=== PATIENT | male | born 1965 | race Caucasian/White ===

== ENCOUNTER 2017-02-27 09:51 | Observation (INO) ==
--- NOTE | 2017-02-27 09:59 | Emergency Department Note ---
Disposition Clinical Impression: D-dimer, elevated, CAP (community acquired pneumonia), Chest pain, Septic shock Disposition: Admitted As Inpatient Condition: Serious Chest Pain HPI - General Chief Complaint: ED Chest Pain Stated Complaint: chest pain, NAVI Time Seen by Provider: 02/27/17 09:55 Vital Signs Reviewed: Yes Nursing Notes Reviewed: Yes - Related Data Home Medications Medication Instructions Recorded Confirmed Atorvastatin Calcium [Lipitor] 80 mg PO DAILY 03/29/16 02/27/17 FLUoxetine HCl [Prozac] 40 mg PO DAILY 03/29/16 02/27/17 Omeprazole Magnesium [Prilosec Otc] 20 mg PO DAILY 03/29/16 02/27/17 diazePAM [Valium] 10 mg PO TID 03/29/16 02/27/17 Gemfibrozil [Lopid] 1 tab PO BID 02/27/17 02/27/17 Losartan Potassium [Cozaar] 100 mg PO DAILY 02/27/17 02/27/17 Previous Rx's Medication Instructions Recorded Fluticasone Propionate Nasal 1 spray NS DAILY #1 bottle 03/29/16 [Flonase] Allergies Allergy/AdvReac Type Severity Reaction Status Date / Time ciprofloxacin Allergy See Verified 02/27/17 10:34 Comments ketorolac [From Toradol] Allergy Rash Verified 02/27/17 10:34 tramadol Allergy Rash Verified 02/27/17 10:34 Chest Pain PMH - Past Medical History Medical history: Reports: asthma, GERD, hyperlipidemia, hypertension Psychiatric history: Reports: anxiety, depression - Social History Smoking Status: Current every day smoker Alcohol use: Reports: occasionally Drug use: Reports: none Course Vital Signs Temperature 98.1 F 02/27/17 09:53 Pulse Rate 108 02/27/17 09:53 Respiratory Rate 18 02/27/17 09:53 Blood Pressure 95/57 02/27/17 09:53 O2 Sat by Pulse Oximetry 94 02/27/17 09:53 Temperature 98.1 F 02/27/17 09:53 Pulse Rate 92 02/27/17 13:00 Respiratory Rate 18 02/27/17 13:00 Blood Pressure 111/63 02/27/17 13:00 O2 Sat by Pulse Oximetry 98 02/27/17 13:00 Oxygen Delivery Oxygen Delivery Room Air Chest Pain - MDM Narrative Medical decision making narrative: This documentation is done with the assistance of Dragon dictation. There may be inaccuracies in cupola tapper helper or spelling and typographical errors. I examined this patient and my medical decision-making was reviewed with the Resident Physician. I agree with the documented findings, disposition and treatment plan as described except to the extent set forth below. Patient seen on arrival with EMS and Dr. Guadalupe, I agree with his evaluation and management plan, supervise care the patient's stay. Patient's been having intermittent chest pain going on for more than a week. He has had a family history of heart disease a young age. Mom thinks he had atrial fibrillation in the past. Is also a history of cirrhosis. Patient denies any nausea or back pain at this time no fevers or chills. He appears nontoxic. We will check a troponin EKG chest x-ray and lab work. We will discuss aspirin and nitroglycerin then reassess. He may need admission. 1200 hrs.: Patient has a left-sided pneumonia on chest x-ray. Radiology is having issues with radiologist reading films due to a computer problem. But this is on my read. We will order antibiotics. Admit him to the hospital. He and family in agreement with plan. 1242 hrs.: His d-dimer is elevated which could be from his pneumonia. We like to order CT of his chest however he does have renal insufficiency so we cannot do that. VQ scan may not be the best order either because of the abnormal chest x-ray. We will speak with the hospitalist about heparinizing him and then admit him. Patient's critical care time exclusive a several billable procedures is 45 minutes. Chest X-Ray 02/27/17 09:55 IMPRESSION: 1. Dense opacity in the left mid and lower lung zone, most compatible with pneumonia in the appropriate clinical setting. Recommend treating the patient and following to resolution. D/ / Janice Molina MD / Janice Molina MD Interpreting Provider: Janice Molina MD - Lab Data Result diagrams: 02/27/17 10:24 02/27/17 10:24 Lab Results 02/27/17 02/27/17 02/27/17 Range/Units 10:24 10:24 10:24 WBC 5.2 (4.3-11.1) K/mcL RBC 3.32 L (4.19-5.50) M/mcL Hgb 12.2 L (12.9-16.9) g/dL Hct 34.0 L (37.5-50.1) % MCV 102.4 H (83.0-100.0) fL MCH 36.7 H (28.0-33.3) pg MCHC 35.9 H (31.6-35.5) g/dL RDW 12.7 (11.5-14.5) % Plt Count 167 (140-400) K/mcL MPV 10.9 (9.4-12.4) fL Seg Neutrophils % 55.0 % Band Neutrophils % 17.0 H (0-4) % Lymphocytes % 17.0 % Monocytes % 6.0 % Metamyelocytes % 5.0 H (0) % Neutrophils # 3.7 (1.6-8.9) K/mcL Lymphocytes # 0.9 (0.6-4.6) K/mcL Monocytes # 0.3 (0.0-1.3) K/mcL Reactive Lymphocytes Present A (Not Present) Dohle Bodies Present A (Not Present) Platelet Estimate Normal (Normal) Polychromasia 1+ A (Not Present) PT (9.4-12.1) Seconds INR APTT (26.0-36.0) Seconds D-Dimer (0-500) ng/mLFEU Sodium 128 L (136-145) mEq/L Potassium 4.0 (3.5-5.1) mEq/L Chloride 94 L (98-107) mEq/L Carbon Dioxide 27 (23-29) mEq/L BUN 30 H (6-20) mg/dL Creatinine 2.57 H (0.70-1.30) mg/dL Est GFR ( Amer) 32 L (> 60) Est GFR (Non-Af Amer) 27 L (> 60) BUN/Creatinine Ratio 12 (6-26) Glucose 114 H (70-105) mg/dL Calculated Osmolality 273 L (280-300) Lactic Acid (0.5-2.2) mmol/L Calcium 7.8 L (8.6-10.3) mg/dL Phosphorus 3.2 (2.7-4.5) mg/dL Magnesium 1.0 L (1.6-2.6) mg/dL Total Bilirubin 0.8 (0.3-1.0) mg/dL AST 12 L (13-39) Units/L ALT 26 (7-52) Units/L Alkaline Phosphatase 76 (34-104) Units/L Troponin I < 0.03 (< 0.04) ng/mL Serum Total Protein 7.8 (6.4-8.9) g/dL Albumin 3.2 L (3.5-5.7) g/dL Globulin 4.6 H (2.4-3.5) g/dL Albumin/Globulin Ratio 0.7 L (1.1-2.2) 02/27/17 02/27/17 Range/Units 10:24 10:24 WBC (4.3-11.1) K/mcL RBC (4.19-5.50) M/mcL Hgb (12.9-16.9) g/dL Hct (37.5-50.1) % MCV (83.0-100.0) fL MCH (28.0-33.3) pg MCHC (31.6-35.5) g/dL RDW (11.5-14.5) % Plt Count (140-400) K/mcL MPV (9.4-12.4) fL Seg Neutrophils % % Band Neutrophils % (0-4) % Lymphocytes % % Monocytes % % Metamyelocytes % (0) % Neutrophils # (1.6-8.9) K/mcL Lymphocytes # (0.6-4.6) K/mcL Monocytes # (0.0-1.3) K/mcL Reactive Lymphocytes (Not Present) Dohle Bodies (Not Present) Platelet Estimate (Normal) Polychromasia (Not Present) PT 12.9 H (9.4-12.1) Seconds INR 1.2 APTT 28.3 (26.0-36.0) Seconds D-Dimer 1303 H (0-500) ng/mLFEU Sodium (136-145) mEq/L Potassium (3.5-5.1) mEq/L Chloride (98-107) mEq/L Carbon Dioxide (23-29) mEq/L BUN (6-20) mg/dL Creatinine (0.70-1.30) mg/dL Est GFR ( Amer) (> 60) Est GFR (Non-Af Amer) (> 60) BUN/Creatinine Ratio (6-26) Glucose (70-105) mg/dL Calculated Osmolality (280-300) Lactic Acid 1.9 (0.5-2.2) mmol/L Calcium (8.6-10.3) mg/dL Phosphorus (2.7-4.5) mg/dL Magnesium (1.6-2.6) mg/dL Total Bilirubin (0.3-1.0) mg/dL AST (13-39) Units/L ALT (7-52) Units/L Alkaline Phosphatase (34-104) Units/L Troponin I (< 0.04) ng/mL Serum Total Protein (6.4-8.9) g/dL Albumin (3.5-5.7) g/dL Globulin (2.4-3.5) g/dL Albumin/Globulin Ratio (1.1-2.2)
[2017-02-27] MEDS ORDERED: 0.9 % Sodium Chloride 1,000 ML IVC ONE ×2 (10:04→12:48)
[2017-02-27] MEDS ORDERED: Azithromycin 500 MG in D5% in Water 250 ML IVPB ONE (10:17)
--- NOTE | 2017-02-27 10:21 | Emergency Department Note ---
Disposition Clinical Impression: D-dimer, elevated, Septic shock CAP (community acquired pneumonia) Qualifiers: Laterality: left Lung location: lower lobe of lung Qualified Code(s): J18.1 - Lobar pneumonia, unspecified organism Chest pain Qualifiers: Chest pain type: unspecified Qualified Code(s): R07.9 - Chest pain, unspecified Disposition: Admitted As Inpatient Condition: Serious Time of Disposition: 13:07 Chest Pain HPI - General Chief Complaint: ED Chest Pain Stated Complaint: chest pain, NAVI Time Seen by Provider: 02/27/17 09:55 Source: patient, EMS Limitations: no limitations Vital Signs Reviewed: Yes Nursing Notes Reviewed: Yes - History of Present Illness Pt complaint: chest pain Severity scale (1-10): 8 - Related Data Home Medications Medication Instructions Recorded Confirmed Atorvastatin Calcium [Lipitor] 80 mg PO DAILY 03/29/16 02/27/17 FLUoxetine HCl [Prozac] 40 mg PO DAILY 03/29/16 02/27/17 Omeprazole Magnesium [Prilosec Otc] 20 mg PO DAILY 03/29/16 02/27/17 diazePAM [Valium] 10 mg PO TID 03/29/16 02/27/17 Gemfibrozil [Lopid] 1 tab PO BID 02/27/17 02/27/17 Losartan Potassium [Cozaar] 100 mg PO DAILY 02/27/17 02/27/17 Previous Rx's Medication Instructions Recorded Fluticasone Propionate Nasal 1 spray NS DAILY #1 bottle 03/29/16 [Flonase] Allergies Allergy/AdvReac Type Severity Reaction Status Date / Time ciprofloxacin Allergy See Verified 02/27/17 10:34 Comments ketorolac [From Toradol] Allergy Rash Verified 02/27/17 10:34 tramadol Allergy Rash Verified 02/27/17 10:34 All systems ED: reviewed and negative except as stated. Review of Systems: As Per HPI Constitutional: Reports: fever, chills Eyes: Denies: eye pain, eye discharge ENT ED: Denies: ear pain Cardiovascular: Reports: chest pain. Denies: palpitations Respiratory: Reports: as per HPI, cough, dyspnea, hemoptysis Gastrointestinal: Denies: abdominal pain, nausea Genitourinary: Denies: urgency, dysuria Musculoskeletal: Denies: back pain Integumentary: Denies: rash, abrasion Neurological: Denies: headache Psychiatric: Denies: anxiety, depression Endocrine: Reports: as per HPI, fatigue Chest Pain PMH - Past Medical History Medical history: Reports: asthma, GERD, hyperlipidemia, hypertension Psychiatric history: Reports: anxiety, depression - Social History Smoking Status: Current every day smoker Alcohol use: Reports: occasionally Drug use: Reports: none Physical Exam Constitutional: Mild to moderate respiratory distress, patient appears to be uncomfortable low bp, 94/60 systolic, placed on oxygen, tachycardic. Eyes: PERRLA, sclera anicteric ENT & Mouth: MM dry Neck: normal inspection, neck is supple Resp: tachypeneic rales on the left lung base, diminished lung sounds on the left. CV: tachycardia no m/g/r GI: normal inspection, soft, no guarding or rigidity Neuro: A&O3, CNII-XII grossly intact, PROCTOR Skin: on limited exam, skin intact with no rashes or lesions - General Limitations: no limitations General appearance: alert, in no apparent distress Course Course Narrative: PERC Tachycardic will get Dimer, labs septic workup concern for URI pneumonia, hypoxia,blood pressure low will give 30cc/kg bolus lactate bcx x and reassess. - Reevaluation(s) Reevaluation #1: I spoke with the hospitalist, Dr. Xiao he came in to evaluate the patient, return the patient for pneumonia given her tachycardia, bandemia, he meets criteria for sepsis, started empirically on broad-spectrum ceftriaxone and azithromycin for acute heart pneumonia patient also has evidence of acute on chronic renal failure, the patient was given heparinization for possibility of PE he had a d-dimer of 1200, no history of PE however given hemoptysis, tachycardia and syncopal episodes plan is for heparinization, deferring VQ versus CTAP for hospitalist given that he currently does not have good renal function and there are infiltrative findings versus consolidation on his chest x -ray and VQ scan suboptimal Reevaluation #2: Dr. Xiao came to the bedside to evaluate the patient, he recommended a bedside echocardiogram, given that the patient was hypotensive and is given 30 mL per came bolus, the patient technically meets criteria for septic shock and has improved his blood pressure, there is still concern for pneumonia given bandemia tachycardia and left lobe consolidation however also on the differential is pulmonary embolus therefore will get heparinization, admission to [facility] Time: 13:12 Vital Signs Temperature 98.1 F 02/27/17 09:53 Pulse Rate 108 02/27/17 09:53 Respiratory Rate 18 02/27/17 09:53 Blood Pressure 95/57 02/27/17 09:53 O2 Sat by Pulse Oximetry 94 02/27/17 09:53 Temperature 98.1 F 02/27/17 09:53 Pulse Rate 92 02/27/17 13:00 Respiratory Rate 18 02/27/17 13:00 Blood Pressure 111/63 02/27/17 13:00 O2 Sat by Pulse Oximetry 98 02/27/17 13:00 Oxygen Delivery Oxygen Delivery Room Air Chest Pain - Lab Data Result diagrams: 02/27/17 10:24 02/27/17 10:24 Lab Results 02/27/17 02/27/17 02/27/17 Range/Units 10:24 10:24 10:24 WBC 5.2 (4.3-11.1) K/mcL RBC 3.32 L (4.19-5.50) M/mcL Hgb 12.2 L (12.9-16.9) g/dL Hct 34.0 L (37.5-50.1) % MCV 102.4 H (83.0-100.0) fL MCH 36.7 H (28.0-33.3) pg MCHC 35.9 H (31.6-35.5) g/dL RDW 12.7 (11.5-14.5) % Plt Count 167 (140-400) K/mcL MPV 10.9 (9.4-12.4) fL Seg Neutrophils % 55.0 % Band Neutrophils % 17.0 H (0-4) % Lymphocytes % 17.0 % Monocytes % 6.0 % Metamyelocytes % 5.0 H (0) % Neutrophils # 3.7 (1.6-8.9) K/mcL Lymphocytes # 0.9 (0.6-4.6) K/mcL Monocytes # 0.3 (0.0-1.3) K/mcL Reactive Lymphocytes Present A (Not Present) Dohle Bodies Present A (Not Present) Platelet Estimate Normal (Normal) Polychromasia 1+ A (Not Present) PT (9.4-12.1) Seconds INR APTT (26.0-36.0) Seconds D-Dimer (0-500) ng/mLFEU Sodium 128 L (136-145) mEq/L Potassium 4.0 (3.5-5.1) mEq/L Chloride 94 L (98-107) mEq/L Carbon Dioxide 27 (23-29) mEq/L BUN 30 H (6-20) mg/dL Creatinine 2.57 H (0.70-1.30) mg/dL Est GFR ( Amer) 32 L (> 60) Est GFR (Non-Af Amer) 27 L (> 60) BUN/Creatinine Ratio 12 (6-26) Glucose 114 H (70-105) mg/dL Calculated Osmolality 273 L (280-300) Lactic Acid (0.5-2.2) mmol/L Calcium 7.8 L (8.6-10.3) mg/dL Phosphorus 3.2 (2.7-4.5) mg/dL Magnesium 1.0 L (1.6-2.6) mg/dL Total Bilirubin 0.8 (0.3-1.0) mg/dL AST 12 L (13-39) Units/L ALT 26 (7-52) Units/L Alkaline Phosphatase 76 (34-104) Units/L Troponin I < 0.03 (< 0.04) ng/mL Serum Total Protein 7.8 (6.4-8.9) g/dL Albumin 3.2 L (3.5-5.7) g/dL Globulin 4.6 H (2.4-3.5) g/dL Albumin/Globulin Ratio 0.7 L (1.1-2.2) 02/27/17 02/27/17 Range/Units 10:24 10:24 WBC (4.3-11.1) K/mcL RBC (4.19-5.50) M/mcL Hgb (12.9-16.9) g/dL Hct (37.5-50.1) % MCV (83.0-100.0) fL MCH (28.0-33.3) pg MCHC (31.6-35.5) g/dL RDW (11.5-14.5) % Plt Count (140-400) K/mcL MPV (9.4-12.4) fL Seg Neutrophils % % Band Neutrophils % (0-4) % Lymphocytes % % Monocytes % % Metamyelocytes % (0) % Neutrophils # (1.6-8.9) K/mcL Lymphocytes # (0.6-4.6) K/mcL Monocytes # (0.0-1.3) K/mcL Reactive Lymphocytes (Not Present) Dohle Bodies (Not Present) Platelet Estimate (Normal) Polychromasia (Not Present) PT 12.9 H (9.4-12.1) Seconds INR 1.2 APTT 28.3 (26.0-36.0) Seconds D-Dimer 1303 H (0-500) ng/mLFEU Sodium (136-145) mEq/L Potassium (3.5-5.1) mEq/L Chloride (98-107) mEq/L Carbon Dioxide (23-29) mEq/L BUN (6-20) mg/dL Creatinine (0.70-1.30) mg/dL Est GFR ( Amer) (> 60) Est GFR (Non-Af Amer) (> 60) BUN/Creatinine Ratio (6-26) Glucose (70-105) mg/dL Calculated Osmolality (280-300) Lactic Acid 1.9 (0.5-2.2) mmol/L Calcium (8.6-10.3) mg/dL Phosphorus (2.7-4.5) mg/dL Magnesium (1.6-2.6) mg/dL Total Bilirubin (0.3-1.0) mg/dL AST (13-39) Units/L ALT (7-52) Units/L Alkaline Phosphatase (34-104) Units/L Troponin I (< 0.04) ng/mL Serum Total Protein (6.4-8.9) g/dL Albumin (3.5-5.7) g/dL Globulin (2.4-3.5) g/dL Albumin/Globulin Ratio (1.1-2.2) - EKG Data EKG attestation: Yes I reviewed and interpreted this EKG. EKG shows normal: sinus rhythm (1 a 73 minute WA 140 QRS 84 QTC 366 no evidence of acute ST segment elevations or depressions, flattened T waves in 3 and aVL.) Heart Score - Score History: Slightly Suspicious EKG: Non Specific repolarisation Disturbance Age: 45-65 Risk Factors: 1-2 risk factors Troponin: Less than normal limit HEART Score Total: 3 Sepsis Reassessment Note - Evaluation Current Stage of Sepsis: septic shock Possible Source of Sepsis: pulmonary - Focused Exam Date of Encounter: 02/27/17 Time of Encounter: 13:12 Vital Signs: Vital Signs Temp Pulse Resp BP Pulse Ox 02/27/17 12:00 94 18 114/67 96 02/27/17 11:00 100 20 96/58 99 02/27/17 10:45 96 18 108/64 99 02/27/17 10:38 94 02/27/17 10:30 104 20 88/74 100 02/27/17 10:15 100 20 96/57 99 02/27/17 10:02 94 02/27/17 10:00 110 20 89/73 96 02/27/17 09:53 98.1 F 108 18 95/57 94 Respiratory Exam: Present: rales Cardiovascular Exam: Present: tachycardia Capillary Refill: > 2 seconds Peripheral Pulse Strength: 2+ slightly diminished Peripheral Pulse Location: Pedal Skin Exam: flushed
[2017-02-27] MEDS: 0.9 % Sodium Chloride 1,000 ML IVC SCH ×3 (10:41→18:36)
[2017-02-27 10:47] LABS: Hemoglobin 12.2 g/dL (12.9-16.9); Mean Corpuscular HGB Conc 35.9 g/dL (31.6-35.5); Mean Corpuscular Hemoglobin 36.7 pg (28.0-33.3); Mean Corpuscular Volume 102.4 fL (83.0-100.0); Mean Platelet Volume 10.9 fL (9.4-12.4); Platelet Count 167 K/mcL (140-400); Red Blood Count 3.32 M/mcL (4.19-5.50); Red Cell Distribution Width 12.7 % (11.5-14.5)
[2017-02-27 10:53] LABS: INR 1.2; Prothrombin Time 12.9 Seconds (9.4-12.1)
[2017-02-27 10:55] LABS: Activated Partial Thrombo Time 28.3 Seconds (26.0-36.0)
[2017-02-27 10:58] LABS: Albumin 3.2 g/dL (3.5-5.7); Albumin/Globulin Ratio 0.7 (1.1-2.2); Bilirubin,Total 0.8 mg/dL (0.3-1.0); Calcium 7.8 mg/dL (8.6-10.3); Globulin 4.6 g/dL (2.4-3.5); Phosphorous 3.2 mg/dL (2.7-4.5); Total Protein 7.8 g/dL (6.4-8.9)
[2017-02-27 11:53] LABS: Lymphocytes # 0.9 K/mcL (0.6-4.6); Monocytes # 0.3 K/mcL (0.0-1.3); Neutrophils # 3.7 K/mcL (1.6-8.9); Platelet Estimate Normal (Normal); Reactive Lymphocytes Present (Not Present)
[2017-02-27 11:54] LABS: Dohle Bodies Present (Not Present); Polychromasia 1+ (Not Present)
[2017-02-27] MEDS ORDERED: Aspirin 81 MG TAB.CHEW PO ONE (12:10)
[2017-02-27] MEDS ORDERED: *HR* Heparin 5,000 UNIT/ML VIAL IVP ONE (12:30)
[2017-02-27] MEDS ORDERED: *HR* Heparin 5,000 UNIT/ML VIAL IVP PRN ×2 (12:30)
[2017-02-27] MEDS: Heparin 25,000 UNIT/500 ML D5W 25,000 UNIT/500 ML BAG IVC SCH (12:56)
[2017-02-27] MEDS ORDERED: cefTRIAXone 2,000 MG in Water for inj. (sterile) 20 ML 20 ML IVPB ONE (13:00)
[2017-02-27] MEDS ORDERED: Ondansetron 4 MG/2 ML VIAL IVP PRN (13:48)
[2017-02-27] MEDS ORDERED: Piperacillin/Tazobactam 3.375 GM in Water for inj. (sterile) 20 ML 20 ML IVPB ONE (14:00)
[2017-02-27] MEDS ORDERED: Azithromycin 500 MG in D5% in Water 250 ML IVPB SCH (14:00)
[2017-02-27] MEDS ORDERED: *HR* LORazepam 0.5 MG TABLET PO PRN (14:15)
[2017-02-27] MEDS: *HR* Morphine 2 MG/ML SYRINGE IVP PRN ×2 (14:56→20:49)
--- NOTE | 2017-02-27 15:04 | Internal Med History&Physical ---
Date of Encounter: 02/27/17 Time of Encounter: 15:02 Assessment and Plan (1) CAP (community acquired pneumonia) Current visit: Yes Status: Acute Ceftriaxone and azithromycin. Check sputum and blood cultures. Qualifiers: Laterality: left Lung location: lower lobe of lung Qualified Code(s): J18.1 - Lobar pneumonia, unspecified organism (2) Headache Current visit: Yes Status: Acute Head CT will be performed. There is no focal neurological deficits. However he continues to have severe headache and episodes of vision loss according to him however, I suspect that these may be episodes of pre-syncope or syncope related to pneumonia/sepsis or pulmonary embolism if present. He has neck pain but this is chronic from neck fractures and surgeries. No confusion remains alert oriented times 3. She continues to have headache despite medical treatment will consider performing a lumbar puncture. However patient is currently on full dose heparin drip Qualifiers: Qualified Code(s): R51 - Headache (3) D-dimer, elevated Current visit: Yes Status: Acute In the setting of elevated the dimer, wedge-shaped opacity in the left lung, hemoptysis and pleuritic chest pain, pulmonary embolism is definitely a consideration. Unfortunately patient has acute renal failure and CT angiogram is not feasible currently. We will start the patient empirically on anticoagulation with unfractionated heparin. VQ scan will be performed. Will check echocardiogram to assess right side of the heart to see if there is any indication for a big pulmonary embolism especially that there was several low blood pressure readings in the emergency room. (4) Alcohol withdrawal Current visit: Yes Status: Acute Patient drinks alcohol on a daily basis. According to family he drinks a 1/5th of vodka every 3 days. He also drinks 6 beers every day. We will keep patient CIWA protocol. Give thiamine and folic acid. Qualifiers: Qualified Code(s): F10.239 - Alcohol dependence with withdrawal, unspecified Internal Medicine - H&P: HPI Chief complaint: sob and cough History of present illness: Mr. Burk is a 51 year old male patient presents emergency room today with the main complain of cough and shortness of breath. For the past 4 days patient has been having productive cough of Tyrese hemoptysis, progressive shortness of breath with any minimal exertion in addition to subjective chills. Patient is also having left sided pectoral pleuritic chest pain worsens with any coughing inspirational movement. Patient also mentioned that he had several episodes of loss of consciousness that last for a short period less than a minute usually preceded by lightheadedness. He mentioned also that he has episodes of vision loss bilaterally. When I questioned whether he thinks that these episodes may be related to his attacks of presyncope/syncope, he mentioned that that those are different. He denies any lower extremity swelling. No previous history of PE or DVT. No family history of unprovoked venous thromboembolism at a young age. Family mentioned that he drinks a lot of alcohol approximately a 1/5th of vodka every 3 days in addition to 6 beers a day. Past Med Surg Social Fam HX - Past Medical History Medical history: asthma, GERD, hyperlipidemia, hypertension Psychiatric history: anxiety, depression - Social History Smoking Status: Current every day smoker Smokeless Tobacco Status: No Alcohol use: occasionally Drug use: none Internal Medicine - H&P: Meds Atorvastatin Calcium [Lipitor] 80 mg PO DAILY 03/29/16 [History] FLUoxetine HCl [Prozac] 40 mg PO DAILY 03/29/16 [History] Fluticasone Propionate Nasal [Flonase] 1 spray NS DAILY #1 bottle 03/29/16 [Rx] Omeprazole Magnesium [Prilosec Otc] 20 mg PO DAILY 03/29/16 [History] diazePAM [Valium] 10 mg PO TID 03/29/16 [History] Gemfibrozil [Lopid] 1 tab PO BID 02/27/17 [History] Losartan Potassium [Cozaar] 100 mg PO DAILY 02/27/17 [History] 3 Allergy/AdvReac Type Severity Reaction Status Date / Time ciprofloxacin Allergy See Verified 02/27/17 10:34 Comments ketorolac [From Toradol] Allergy Rash Verified 02/27/17 10:34 tramadol Allergy Rash Verified 02/27/17 10:34 All Systems PM: A 10-system review of systems was performed and is negative for pertinent findings except as documented above in the HPI. Review of systems: 10 point review of systems is negative except for HPI - Constitutional Vitals: Temp Pulse Resp BP Pulse Ox 98.1 F 94 18 111/68 98 02/27/17 09:53 02/27/17 13:45 02/27/17 13:45 02/27/17 13:45 02/27/17 13:45 Exam: Gen.: patient is alert oriented times 3 not in distress. Cardiac: normal S1 S2 no additional sounds are murmurs. Chest: coarse breath sounds in left lung posteriorly, scattered expiratory wheezing Abdomen: soft nontender nondistended. Lower extremity no swelling mucous membranes: moist Internal Med - H&P Results - Labs CBC & Chem 7: 02/27/17 10:24 02/27/17 10:24 Labs: Short CBC 02/27/17 Range/Units 10:24 WBC 5.2 (4.3-11.1) K/mcL Hgb 12.2 L (12.9-16.9) g/dL Hct 34.0 L (37.5-50.1) % Plt Count 167 (140-400) K/mcL Neutrophils # 3.7 (1.6-8.9) K/mcL BMP 02/27/17 10:24 Sodium 128 L Potassium 4.0 Chloride 94 L Carbon Dioxide 27 BUN 30 H Creatinine 2.57 H Glucose 114 H Calcium 7.8 L Cardiac Enzymes 02/27/17 Range/Units 10:24 Troponin I < 0.03 (< 0.04) ng/mL Liver Function 02/27/17 Range/Units 10:24 Total Bilirubin 0.8 (0.3-1.0) mg/dL AST 12 L (13-39) Units/L ALT 26 (7-52) Units/L Alkaline Phosphatase 76 (34-104) Units/L Albumin 3.2 L (3.5-5.7) g/dL - Impressions ITS Impressions Chest X-Ray 02/27/17 09:55 IMPRESSION: 1. Dense opacity in the left mid and lower lung zone, most compatible with pneumonia in the appropriate clinical setting. Recommend treating the patient and following to resolution. D/ / 02/27/2017 12:44:31 Janice Molina MD / [facility] Interpreting Provider: Janice Molina MD
[2017-02-27] MEDS: Ipratropium/Albuterol Neb 3 ML IH SCH ×3 (15:33→23:43)
[2017-02-27] MEDS ORDERED: cefTRIAXone 1,000 MG in Water for inj. (sterile) 20 ML 10 ML IVP SCH (16:00)
[2017-02-27] MEDS: methylPREDNISolone 125 MG/2 ML VIAL IVP SCH (18:31)
[2017-02-27] MEDS ORDERED: Piperacillin/Tazobactam 3.375 GM/200 ML BAG IVPB SCH (22:00)
[2017-02-28] MEDS: *HR* Morphine 2 MG/ML SYRINGE IVP PRN ×2 (02:21→09:11)
[2017-02-28] MEDS: methylPREDNISolone 125 MG/2 ML VIAL IVP SCH ×3 (02:22→12:50)
[2017-02-28 02:40] LABS: Basophils % 0.3 %; Immature Granulocytes % 1.3 % (0-4); Lymphocytes # 0.4 K/mcL (0.6-4.6); Lymphocytes % 10.8 %; Mean Corpuscular HGB Conc 35.3 g/dL (31.6-35.5); Mean Corpuscular Hemoglobin 36.4 pg (28.0-33.3); Mean Corpuscular Volume 103.1 fL (83.0-100.0); Mean Platelet Volume 10.7 fL (9.4-12.4); Monocytes # 0.3 K/mcL (0.0-1.3); Monocytes % 8.2 %; Neutrophils # 3.1 K/mcL (1.6-8.9); Platelet Count 151 K/mcL (140-400); Red Blood Count 2.91 M/mcL (4.19-5.50); Segmented Neutrophils % 79.4 %
[2017-02-28 03:01] LABS: Hemoglobin 10.6 g/dL (12.9-16.9)
[2017-02-28 03:08] LABS: Alanine Aminotransferase 20 Units/L (7-52); Albumin 2.9 g/dL (3.5-5.7); Albumin/Globulin Ratio 0.7 (1.1-2.2); Alkaline Phosphatase 66 Units/L (34-104); Aspartate Amino Transferase 10 Units/L (13-39); BUN/Creatinine Ratio 15 (6-26); Bilirubin,Total 0.3 mg/dL (0.3-1.0); Blood Urea Nitrogen 23 mg/dL (6-20); Calcium 7.4 mg/dL (8.6-10.3); Carbon Dioxide 23 mEq/L (23-29); Chloride 104 mEq/L (98-107); Glucose 219 mg/dL (70-105); Magnesium 1.6 mg/dL (1.6-2.6); Osmolality,Calculated 288 (280-300); Sodium 134 mEq/L (136-145); Total Protein 6.9 g/dL (6.4-8.9); eGFR For African Americans 57 (> 60); eGFR For Non-African Americans 47 (> 60)
[2017-02-28] MEDS: Heparin 25,000 UNIT/500 ML D5W 25,000 UNIT/500 ML BAG IVC SCH (03:26)
[2017-02-28 04:02] LABS: Large Platelets Present (Not Present); Macrocytosis Present (Not Present); Platelet Estimate Normal (Normal)
[2017-02-28] MEDS: Ipratropium/Albuterol Neb 3 ML IH SCH ×3 (04:06→11:23)
[2017-02-28 05:42] LABS: C-Reactive Protein > 300 mg/L (Less than 10)
[2017-02-28] MEDS: 0.9 % Sodium Chloride 1,000 ML IVC SCH (06:38)
[2017-02-28] MEDS ORDERED: Thiamine (B-1) 100 MG in D5% in Water 50 ML IVPB SCH (09:00)
[2017-02-28] MEDS ORDERED: Folic Acid 1 MG TABLET PO SCH (09:00)
[2017-02-28] MEDS ORDERED: Famotidine 20 MG/2 ML VIAL IVP SCH (09:00)
[2017-02-28] MEDS ORDERED: Azithromycin 500 MG in D5% in Water 250 ML IVPB SCH (09:00)
[2017-02-28] MEDS ORDERED: Fluticasone Propionate Nasal 50 MCG/SPRAY BOTTLE NS SCH (09:00)
[2017-02-28 11:02] VITALS: BP 129/92
[2017-02-28] MEDS ORDERED: Ketorolac 30 MG/ML VIAL IVP PRN (11:26)
[2017-02-28] MEDS ORDERED: *HR* Heparin 5,000 UNIT/ML VIAL SQ SCH (14:00)
--- NOTE | 2017-02-28 18:29 | Discharge Summary ---
Date of Encounter: 02/28/17 Time of Encounter: 11:00 - Discharge Diagnosis (1) CAP (community acquired pneumonia) Priority: Primary Status: Acute Qualifiers: Laterality: left Lung location: lower lobe of lung Qualified Code(s): J18.1 - Lobar pneumonia, unspecified organism - Discharge Medications Home Medications: Atorvastatin Calcium [Lipitor] 80 mg PO DAILY 03/29/16 [History] FLUoxetine HCl [Prozac] 40 mg PO DAILY 03/29/16 [History] Fluticasone Propionate Nasal [Flonase] 1 spray NS DAILY #1 bottle 03/29/16 [Rx] Omeprazole Magnesium [Prilosec Otc] 20 mg PO DAILY 03/29/16 [History] diazePAM [Valium] 10 mg PO TID 03/29/16 [History] Gemfibrozil [Lopid] 1 tab PO BID 02/27/17 [History] Losartan Potassium [Cozaar] 100 mg PO DAILY 02/27/17 [History] Allergies/Adverse Reactions: 3 Allergy/AdvReac Type Severity Reaction Status Date / Time ciprofloxacin Allergy See Verified 02/27/17 10:34 Comments ketorolac [From Toradol] Allergy Rash Verified 02/27/17 10:34 tramadol Allergy Rash Verified 02/27/17 10:34 Date of admission: 02/27/17 18:25 Primary care physician: Carmela Hanna CNP - Patient Status Disposition: Left Against Medical Advice Condition: Serious - Discharge Instructions Follow Up With: Carmela Hanna CNP [Primary Care Provider] - Hospital course: Patient is a 51-year-old male with past medical history significant for prescription drug abuse, drug abuse alcohol abuse, smoker hypertension and hyperlipidemia who presented to the ER on 02/27/17 due to shortness of breath with chest pain and productive cough. His family who is at the bedside and patient, reported that he has had hemoptysis for several years. He also reports of chest pain for several years as well. On review of the EKG, there are no ST/T-wave changes and cardiac biomarkers are negative so ACS was ruled out. VQ scan was done and PE was ruled out as well. Patient was noted to have infiltrates in the left upper and lower lobes and was admitted for treatment of community-acquired pneumonia. Suspicion of tuberculosis due to patients recent incarceration in addition to hemoptysis findings on VQ scan. Patient was put on respiratory precautions and workup has been initiated when patient decided to leave AMA due to not receiving IV narcotics. Family had worn staff about patients prescription abuse and drug-seeking tendencies. Patient was covered with Tylenol but was not happy and left AMA even after the risk of untreated pneumonia and suspicion of workup for tuberculosis was discussed. - Time Spent with Patient Total time spent providing and/or coordinating discharge services: Less than 30 minutes - Constitutional Vitals: Temp Pulse Resp BP Pulse Ox 98.2 F 78 18 129/92 93 02/28/17 10:59 02/28/17 10:59 02/28/17 11:23 02/28/17 10:59 02/28/17 11:23
--- NOTE | 2017-03-02 09:25 | Electrocardiograph Report ---
[facility] Test Date: 2017-02-27 Pat Name: Shmuel Burk Department: 104 Room: 2NE29 Gender: M [employer]: MSC : [id number] Requested By: Aleksandar Boyd Order Number: [id number] Reading MD: David Wilson MD Measurements Intervals Energy Rate: 107 P: -50 PA: 140 QRS: 49 QRSD: 84 T: 28 QT: 303 QTc: 366 Interpretive Statements normal sinus rhythm NONSPECIFIC T-WAVE ABNORMALITY ABNORMAL RHYTHM ECG Electronically Signed On 03-02-2017 9:23:48 EST by David Wilson MD
== END 2017-02-28 15:11 | disposition left against medical advice (07) | DRG 720 ==
LOC: EMEROO 09:51 → 3BNU 09:51 → 2NENU 09:51 → SUATTDRO 18:25
PROVIDERS: ADMIT Registered Nurse; ATTEND Hospitalist